=== PATIENT | female | born 1955 | race African-American/Black ===

== ENCOUNTER 2025-04-30 12:46 | Inpatient (IN) | payer MEDICARE, MEDICAID ==
[~2025-04-30] VITALS: Ht 172.7 cm; Wt 128.6 kg
--- NOTE | 2025-04-30 12:54 | ELECTROCARDIOGRAPH REPORT ---
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
[2025-04-30 13:12] LABS: BASOPHILS % (AUTO) 0.7 % (0-1); EOSINOPHILS # (AUTO) 0.1 X10'3 (0-0.9); HEMATOCRIT 41.3 % (35.0-45.0); HEMOGLOBIN 14.2 g/dl (12.0-16.0); LYMPHOCYTES # (AUTO) 2.2 X10'3 (1.1-4.8); LYMPHOCYTES % (AUTO) 32.7 % (21-51); MEAN CORPUSCULAR HEMOGLOBIN 30.5 PG (27.0-31.0); MEAN CORPUSCULAR HGB CONC 34.4 g/dL (33.0-36.5); MEAN CORPUSCULAR VOLUME 88.6 FL (78-98); MEAN PLATELET VOLUME 8.2 FL (7.4-10.4); MONOCYTES # (AUTO) 0.5 X10'3 (0-0.9); NEUTROPHILS # (AUTO) 3.9 X10'3 (1.8-7.7); NEUTROPHILS % (AUTO) 57.6 % (42-75); PLATELET COUNT 281 X10'3 (140-440); RED BLOOD COUNT 4.66 X10'6 (4.20-5.60); RED CELL DISTRIBUTION WIDTH 14.7 % (11.5-14.5); WHITE BLOOD COUNT 6.9 X10'3 (4.5-11.0)
--- NOTE | 2025-04-30 13:21 | RADIOLOGY REPORT ---
EXAM: DI CHEST,SINGLE VIEW HISTORY: CP TECHNIQUE: 1 view of the chest COMPARISON: None FINDINGS: LUNGS: No pleural effusion, consolidation, or pneumothorax MEDIASTINUM: Unremarkable BONES: No acute osseous abnormality OTHER: None IMPRESSION: 1. No acute cardiopulmonary disease.
[2025-04-30 13:31] LABS: ALBUMIN 3.9 G/DL (3.4-5.0); ANION GAP 6 (8-16); BLOOD UREA NITROGEN 16 MG/DL (7-18); BUN/CREATININE RATIO 12.8 (10.0-20.0); CALCIUM 9.3 MG/DL (8.5-10.1); CHLORIDE 102 MMOL/L (99-107); CREATININE 1.25 MG/DL (0.40-0.90); GLUCOSE 114 MG/DL (70-104); POTASSIUM 3.4 MMOL/L (3.5-5.1); PRO BRAIN NATRIURETIC PEPTIDE 102 PG/ML (0-125); SODIUM 141 MMOL/L (135-145); TOTAL CARBON DIOXIDE 33.1 MMOL/L (24-32); eCRCL 42 ML/MIN; eGFR 42 ML/MIN
--- NOTE | 2025-04-30 14:11 | Physician Documentation ---
History of Present Illness ~ Chief Complaint: Chest Pain Stated Complaint: CP Time Seen by MD: 15:42 HPI 39-year-old female presents to the ED with a complaint of intermittent chest pain that has only alleviated when she lays down or decreases her activity level. She does not recall if her pain is worsened with any ambulation. However she states she is generally sedentary. 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 She currently states that her chest pain is intermittent and is accompanying with the occasional nausea shortness of breath and chest heaviness. This patient also complains of increased lower extremity swelling. sHe takes Lasix furosemide, Eliquis hydrochlorothiazide. Day of Onset: Apr 30, 2025 Medication Reconciliation Allergies: Coded Allergies: No Known Allergies (Unverified , 04/30/25) Scheduled Apixaban (Eliquis), 1 TAB PO Q12H, (Reported) Furosemide (Lasix), 1 TAB PO DAILY, (Reported) Hydrochlorothiazide (Hydrochlorothiazide), 1 TAB PO DAILY, (Reported) Lisinopril (Lisinopril), 1 TAB PO DAILY, (Reported) Potassium Chloride (Klor-Con), 1 PKT PO DAILY, (Reported) Review of Systems All Other Systems at this time: Reviewed and Negative ROS As stated above in the HPI, otherwise all systems are reviewed and negative. Physical Exam Vital Signs: Temperature: 97.6, Source: Temporal, Heart Rate: 92, Respiratory Rate: 18, BP: 177/78, Pulse Oximetry: 97, Weight: 128.640 Oxygen Flow Rate: 0 Physical Exam General: Alert, no apparent distress. Respiratory: Lungs clear, no respiratory distress. Chest: No accessory muscle use. Cardiovascular: Regular rate and rhythm, no murmurs. Gastrointestinal: Soft, nontender, nondistended. Bowels sounds present. Extremities: Normal range of motion, no deformity. Neurologic: Oriented x4. Psychiatric: Normal mood and affect. Skin: Normal color, warm and dry. No edema, no ecchymosis. Progress Results/Orders Results/Orders Orders - SERGIO CEE NP Page Hospitalist (04/30/25 16:01) Vital Signs 04/30/25 04/30/25 12:56 15:31 Temp 97.6 Pulse 92 79 Resp 18 16 B/P (MAP) 177/78 166/75 (105) Pulse Ox 97 98 O2 Flow Rate 0 0 Laboratory Tests Test 04/30/25 12:59 04/30/25 15:00 White Blood Count 6.9 Red Blood Count 4.66 Hemoglobin 14.2 Hematocrit 41.3 Mean Corpuscular Volume 88.6 Mean Corpuscular Hemoglobin 30.5 Mean Corpuscular Hemoglobin Concent 34.4 Red Cell Distribution Width 14.7 H Platelet Count 281 Mean Platelet Volume 8.2 Neutrophils (%) (Auto) 57.6 Lymphocytes (%) (Auto) 32.7 Monocytes (%) (Auto) 7.0 Eosinophils (%) (Auto) 2.0 Basophils (%) (Auto) 0.7 Neutrophils # (Auto) 3.9 Lymphocytes # (Auto) 2.2 Monocytes # (Auto) 0.5 Eosinophils # (Auto) 0.1 Basophils # (Auto) 0.0 CBC Comment Sodium Level 141 Potassium Level 3.4 L Chloride Level 102 Carbon Dioxide Level 33.1 H Anion Gap 6 L Blood Urea Nitrogen 16 Creatinine 1.25 H Estimated GFR/1.73 m2 42 BUN/Creatinine Ratio 12.8 Glucose Level 114 H Calcium Level 9.3 Troponin I High Sensitivity 11 12 Pro-B-Type Natriuretic Peptide 102 Albumin 3.9 Chemistry Comments Troponin I High Sens Percent Delta 9 Troponin I Hi Sens Absolute Change 1 Medical Decision Making Findings This 69-year-old very pleasant female presents with concerns over stable angina. In addition to her lower extremity swelling recommending hospitalization in communications media professor's evaluation. sHe would certainly benefit from some diuresis. Troponins were negative and her proBNP is reassuring. Since EKG was reassuring for no signs of STEMI and at a regular rate. No axis deviation Differential Dx:Considerations: Include: angina, aortic dissection, chest wall pain, cholelithiasis, CHF, costochondritis, esophageal reflux/spasm, gastritis, herpes zoster, myocardial infarction, pericarditis, pleuritis, pancreatitis, pneumonia, pneumothorax, pulmonary embolus, other Departure Disposition: 09 ADMITTED INPATIENT Impression: Primary Impression: Chest pain on exertion Additional Impressions: Chest pain at rest Chest pain Edema Referrals: NO PRIMARY CARE PROVIDER (PCP) Additional Comment Medical Screen Exam History: This is a 69-year-old female with history of pulmonary embolism who presents with 4-5 days of sternal chest pain described as "pressure and pins and needles" that radiates to her back, patient reports pain improves with getting up and walking around and increases if she sits for too long. Patient reports no shortness of breath. Patient reports she is on Eliquis due to past history of PE Exam: VITALS: Reviewed and as above. GENERAL: Alert, nontoxic appearing, no apparent distress. RESPIRATORY: No increased work of breathing, no respiratory distress, speaking in full clear sentences MSE performed in triage and patient returned to ED lobby by nursing staff The note accurately reflects work and decisions made by me.JAVAN Valentine 04/30/25 14:11 Signature Scribe Signature: f Attestation: Scribed for Sergio Cee Therapy Site Coordinator by Sergio Black NP . 04/30/25 16:00 DAMIAN WINSLOW Apr 30, 2025 14:11 SERGIO CEE NP Apr 30, 2025 16:00
[2025-04-30] MEDS ORDERED: LISI20TA28 PO (16:14)
[2025-04-30] MEDS ORDERED: HYDR25TA4 PO (16:14)
[2025-04-30] MEDS ORDERED: POTA20PA40 PO (16:14)
[2025-04-30] MEDS ORDERED: APIX5TAB3 PO (16:14)
[2025-04-30] MEDS ORDERED: FURO-149 PO (16:14)
[2025-04-30] MEDS ORDERED: magnesium sulf-water 4G/100mL 100 ML IV PRN (16:20)
[2025-04-30] MEDS ORDERED: HYDROcodone/acetaminophen 10/325mg tab PO PRN (16:20)
[2025-04-30] MEDS ORDERED: metoprolol tartrate 1mg/ml inj IV PRN (16:20)
[2025-04-30] MEDS ORDERED: nitroGLYCERIN 0.4mg SUBLingual tab SL PRN (16:20)
[2025-04-30] MEDS ORDERED: ondansetron/PF 4mg/2ml inj IV PRN (16:20)
[2025-04-30] MEDS ORDERED: magnesium sulf-water 2g/50mL 50 ML IV PRN (16:20)
[2025-04-30] MEDS ORDERED: acetaminophen 325mg tablet PO PRN (16:20)
[2025-04-30] MEDS ORDERED: bisacodyl 10mg suppository rectal RC PRN (16:20)
[2025-04-30] MEDS ORDERED: aminophylline 500mg/20ml vial IV PRN (16:20)
[2025-04-30] MEDS ORDERED: potassium Cl 40MEQ/1/2NS 520ml 520 ML IV PRN (16:20)
[2025-04-30] MEDS ORDERED: mag hydrox/Alum hydrox/simeth 30ml oral suspension PO PRN (16:20)
[2025-04-30] MEDS ORDERED: HYDROcodone/acetaminophen 5mg/325mg tablet PO PRN (16:20)
[2025-04-30] MEDS ORDERED: potassium Cl 20 mEq SR tablet PO PRN (16:20)
[2025-04-30] MEDS: PERFLUTREN PROTEIN-A MICROSPHR (Optison) 0.22 MG/ML 3ML VIAL IV ONE (16:32)
--- NOTE | 2025-04-30 17:01 | HISTORY AND PHYSICAL ---
History & Physical Providers to CC ~ History of Present Illness Reason for Admit\Complaint: Chest pain eval for MD/ right back pain History of Present Illness This is a 69-year-old female who has his recently moved from [place] arrives to the ED with a chief complaint of substernal chest pain sharp radiating towards her back - she is also experiencing associated shortness breath and nausea and a mild headache pain in his intermittent and occurs at restm the patient also complains of right back/flank pain denies any dysuria or change in his bowel habits. The patient is on Eliquis and has a history of PE. Currently the patient has a creatinine of 1.25- I have ordered a V/Q scan- so far the troponins are negative that has no acute ischemic changes on EKG- a echocardiogram and a Lexiscan stress test as ordered for the morning Allergies: Coded Allergies: No Known Allergies (Unverified , 04/30/25) Home Medications Home Medications Active Reported Klor-Con (Potassium Chloride) 20 Meq Packet 1 Pkt PO DAILY 30 Days Eliquis (Apixaban) 5 Mg Tablet 1 Tab PO Q12H 30 Days Lasix (Furosemide) 40 Mg Tablet 1 Tab PO DAILY 30 Days Hydrochlorothiazide 25 Mg Tablet 1 Tab PO DAILY 30 Days Lisinopril 20 Mg Tablet 1 Tab PO DAILY 30 Days Past Medical History Past Medical History Pulmonary embolus, hypertension Past Surgical History Surgical History Comment D&C x2 Ankle fracture repair Family History Family History: FH: breast cancer MOTHER FH: cancer sister FH: diabetes mellitus Brother Past Social History Social History Comment Patient denes history of smoking/ drinking alcohol nor any illicit drug use. DNR Code Status ROS ROS Except for positives in the HPI the rest of the 14 point review systems is negative Exam Vitals: Vital Signs Date Time Temp Pulse Resp B/P (MAP) Pulse Ox O2 Delivery O2 Flow Rate FiO2 04/30/25 15:31 79 16 166/75 (105) 98 0 04/30/25 12:56 97.6 General: Gen. No acute distress alert and oriented 4, morbidly obese Lungs clear to ascultation bilaterally, no wheezes rales or rhonchi appreciated Heart normal sinus rhythm no murmurs rubs or clicks noted Abdomen soft nontender bowel sounds are normoactive Lower extremities no clubbing cyanosis, moderate nonpitting edema appreciated bilaterally Diagnostic Data Last Recorded Lab Results: 04/30/25 1259 04/30/25 1259 Advance Care Planning Advanced Care plannin - 30 Minutes Problems: (1) Chest pain Status: Acute Additional Plan # chest pain evaluate for mi- Serial troponins are negative that has far Echocardiogram Lexiscan stress test # history of PE On Eliquis Currently experiencing chest pain with shortness of breath V/Q scan is ordered # kidney disease evaluate for FRANCISCO Daily CMPs are ordered # hypokalemia On potassium per replacement protocol # hypertension Awaiting med reconciliation # DVT prophylaxis Apixaban I spent a total of 17 minutes on reviewing various resuscitative measures/ ACP with the patient at the time of admission. The patient has decided on DNR Date of Service: Apr 30, 2025 Billing Provider: ROQUE NELSON DO Common Visit Codes: 13316-[id number] INP/OBS CARE (HIGH) Secondary Visit Codes: 51794-[id number] CARE PLAN 30 MINUTES ROQUE ENLSON DO Apr 30, 2025 17:01
[2025-04-30] MEDS: normal saline 1000ml 1,000 ML IV SCH (17:03)
[2025-04-30 17:53] VITALS: BP 157/76; PULSE 89; RESP 15; TEMP 97.8; O2SAT 98
[2025-04-30 18:00] VITALS: BP 152/82; PULSE 78; RESP 12; TEMP 97.7; O2SAT 98
[2025-04-30 20:00] VITALS: RESP 16; O2SAT 98
[2025-04-30] MEDS: docusate sod 100mg capsule PO SCH (20:30)
[2025-04-30] MEDS: potassium Cl 20 mEq SR tablet PO PRN (20:30)
[2025-04-30] MEDS: K and/or MAG REPLACEMENT MC SCH (20:33)
[2025-04-30 22:00] VITALS: BP 150/92; PULSE 82; RESP 16; TEMP 97.3; O2SAT 97
[2025-05-01] VITALS (14 sets, daily range): BP systolic 138–190; BP diastolic 64–79; PULSE 73–124; RESP 16–22; TEMP 97.1–98; O2SAT 97–99
[2025-05-01 06:25] LABS: BASOPHILS % (AUTO) 0.5 % (0-1); EOSINOPHILS # (AUTO) 0.2 X10'3 (0-0.9); EOSINOPHILS % (AUTO) 2.7 % (0-6); HEMOGLOBIN 11.9 g/dl (12.0-16.0); LYMPHOCYTES % (AUTO) 36.1 % (21-51); MEAN CORPUSCULAR HEMOGLOBIN 30.3 PG (27.0-31.0); MEAN CORPUSCULAR VOLUME 89.2 FL (78-98); MEAN PLATELET VOLUME 8.4 FL (7.4-10.4); MONOCYTES # (AUTO) 0.6 X10'3 (0-0.9); MONOCYTES % (AUTO) 9.9 % (2-12); NEUTROPHILS # (AUTO) 2.9 X10'3 (1.8-7.7); NEUTROPHILS % (AUTO) 50.8 % (42-75); PLATELET COUNT 234 X10'3 (140-440); RED BLOOD COUNT 3.92 X10'6 (4.20-5.60); RED CELL DISTRIBUTION WIDTH 14.8 % (11.5-14.5); WHITE BLOOD COUNT 5.7 X10'3 (4.5-11.0)
[2025-05-01 06:40] LABS: ALANINE AMINOTRANSFERASE 14 U/L (12-78); ALBUMIN/GLOBULIN RATIO 0.7 (1.1-1.5); ALKALINE PHOSPHATASE 81 IU/L (46-116); ANION GAP 5 (8-16); ASPARTATE AMINO TRANSFERASE 18 U/L (10-37); BILIRUBIN,TOTAL 0.5 MG/DL (0.1-1.0); BLOOD UREA NITROGEN 16 MG/DL (7-18); CALCIUM 8.5 MG/DL (8.5-10.1); CHLORIDE 104 MMOL/L (99-107); CHOL/HDL RATIO 4.9 (0.00-4.99); CHOLESTEROL 199 MG/DL (0-200); GLUCOSE 94 MG/DL (70-104); HDL CHOLESTEROL 41 MG/DL (35-60); LDL CHOLESTEROL 123 MG/DL (50-100); MAGNESIUM 2.2 MG/DL (1.5-2.4); POTASSIUM 3.4 MMOL/L (3.5-5.1); SODIUM 142 MMOL/L (135-145); TOTAL CARBON DIOXIDE 32.6 MMOL/L (24-32); TOTAL PROTEIN 7.1 G/DL (6.4-8.2); TRIGLYCERIDES 74 MG/DL (20-135); eCRCL 53 ML/MIN; eGFR 55 ML/MIN
[2025-05-01] MEDS: lisinopril 20mg tablet PO SCH (08:00)
[2025-05-01] MEDS: potassium Cl 20 mEq SR tablet PO SCH (08:12)
[2025-05-01] MEDS: apixaban 5mg tablet PO SCH (08:13)
[2025-05-01] MEDS: HYDROchlorothiazide 25mg tablet PO SCH (08:13)
[2025-05-01 09:12] LABS: ABG BASE EXCESS 5.6 mmol/L (-2.0-3.0); ABG HCO3 29.2 mmol/L (21.0-28.0); ABG PCO2 (T) 38.2 mmHg (32.0-45.0); ABG PO2 (T) 92.7 mmHg (83.0-108.0); ALLEN'S TEST POSITIVE; FCOHb 1.3 % (0.5-1.5); FMetHb 0.3 % (0.0-1.5); FO2Hb 96.4 % (94.0-98.0); PATIENT TEMPERATURE 36.7; TOTAL HEMOGLOBIN 13.6 G/dl (12.0-16.0)
[2025-05-01] MEDS: acetaminophen 325mg tablet PO PRN (10:10)
[2025-05-01] MEDS: regadenoson 0.4mg/5ml syringe IV PRN (12:10)
[2025-05-01] MEDS ORDERED: ATOR20TA66 PO (14:59)
[2025-05-01] MEDS ORDERED: METO-395 PO (14:59)
--- NOTE | 2025-05-01 15:23 | RADIOLOGY REPORT ---
Reason for study/Clinical History: Angina eval for KS Comparison Study: None Myocardial Perfusion Study with SPECT Technique: The patient received an intravenous injection of 9 mCi of technetium-99m Sestamibi while at rest. After a short delay, SPECT tomographic images of the heart were obtained. The patient the n went to the stress lab where they received an intravenous Lexiscan utilizing standard protocol. 33 mCi of technetium-99m Sestamibi was injected intravenously immediately after the start of the infu cele. Gated SPECT tomographic images of the heart were acquired and processed. Findings: Rotating planar images show no significant attenuation artifact. The left ventricular size is within normal limits. Stress tomographic images demonstrate normal perfusion. Resting tomographic images demonstrate a similar pattern. Gated portion of the study shows normal wall motion and myocardial thickening. The left ventricular ejection fraction is 72%. (normal greater than 50%) Impression: Normal left ventricular size, wall motion, and function, without evidence of infarction or of myocard ium at ischemic risk. The left ventricular ejection fraction is 72%.
--- NOTE | 2025-05-01 15:41 | DISCHARGE SUMMARY ---
Discharge Summary Providers to CC ~ Discharge Summary Admission Diagnosis: Angina eval for [place] Hospital Course DATE OF ADMISSION: DATE OF DISCHARGE: Discharge Diagnosis\Comment: Chest pain etiology unclear hypertension Operations\Procedures: None Consultants: None Complications: None Condition on DC: Stable Discharge Summary: History of Present Illness This is a 69-year-old female who has his recently moved from [place] arrives to the ED with a chief complaint of substernal chest pain sharp radiating towards her back - she is also experiencing associated shortness breath and nausea and a mild headache pain in his intermittent and occurs at restm the patient also complains of right back/flank pain denies any dysuria or change in his bowel habits. The patient is on Eliquis and has a history of PE. Currently the patient has a creatinine of 1.25- I have ordered a V/Q scan- so far the troponins are negative that has no acute ischemic changes on EKG- a echocardiogram and a Lexiscan stress test as ordered for the morning Hospital course patient is a pleasant 69-year-old female. Was admitted with chest pain was ruled out IA with serial troponins and EKGs. Patient had a Lexiscan done which was negative. Patient was very adamant on being discharged KASSI when she found out that Lexiscan was negative. Patient did recover and recuperate from her illness sooner than expected. She did have high blood pressure out of control and systolics in 150s I did add metoprolol and I gave her a prescription for it as well. *Problems/Diagnosis: (1) Chest pain Status: Acute Total Time Spent on D/C: > 30 Minutes Date of Service: May 01, 2025 Billing Provider: BAKARI KATZ MD Common Visit Codes: 36187-JKD/OBS DISCH DAY >30min BAKARI KATZ MD May 01, 2025 15:41
--- NOTE | 2025-05-01 18:27 | CARDIOLOGY REPORT ---
APPROVED REPORT EXAM: Comprehensive 2D, Doppler, and color-flow Echocardiogram. 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 137.8 cm/s AoV VTI 28.4 cm AO Peak GR. 7.6 mmHg AO Mean GR. 5 mmHg LVOT VTI 24.10 cm LVOT Peak Barry. 106.5 cm/s JENNIFER(VTI)/BSA 2.63 cm2/m2 JENNIFER (VTI) 2.63 cm2 Mitral Valve MV E Velocity 120.9 cm/s MV Peak Gr. 4 mmHg MV DECEL TIME 168 ms MV A Velocity 81.7 cm/s MV PHT 84 ms E/A Ratio 1.5 MVA (PHT) 2.62 cm2 MV [id number] cm/s TDI Lateral E' P. V9.74 cm/s E/Lateral E' 12.4 Tricuspid Valve TR P. Velocity 104 cm/s RAP ESTIMATE 10 mmHg TR Peak Gr. 4 mmHg RVSP 14 mmHg LEFT VENTRICLE Normal LV size and wall thickness. Overall systolic function is normal. There is mild hypokinesia of the apex. LVEF is 55-60%. RIGHT VENTRICLE Right ventricle is mildly dilated with adequate function. ATRIA The left atrium size is normal. AORTIC VALVE Aortic valve is probably trileaflet with mild sclerosis. No stenosis. Trace regurgitation. MITRAL VALVE Mild mitral annular calcification without stenosis. Trace regurgitation. TRICUSPID VALVE The tricuspid valve is normal in structure with trace regurgitation. PULMONIC VALVE Pulmonic valve is grossly normal in structure. GREAT VESSELS The aortic root is normal in size. The IVC is normal in size and collapses >50% with inspiration. PERICARDIUM Normal pericardium. No effusion. Other Information Study Quality: Fair due to body habitus Conclusion Normal LV size and wall thickness. Overall systolic function is normal. There is mild hypokinesia of the apex. LVEF is 55-60%. Right ventricle is mildly dilated with adequate function. The left atrium size is normal. Aortic valve is probably trileaflet with mild sclerosis. No stenosis. Trace regurgitation. Mild mitral annular calcification without stenosis. Trace regurgitation. The tricuspid valve is normal in structure with trace regurgitation. Normal pericardium. No effusion.
[2025-05-01] MEDS ORDERED: atorvastatin 20mg tablet PO SCH (21:00)
== END 2025-05-01 16:25 | disposition home or self-care (01) | DRG 313 ==
LOC: ER 12:47 → PCU 3S 16:29 → ORTHO 4S 05-01 12:45
PROVIDERS: ADMIT Family Medicine; ATTEND Family Medicine
PROC: 4A02XM4 Measurement of Cardiac Total Activity, External Approach (ICD-10-PCS; principal; 2025-05-01)
PROC: 3E033HZ Introduction of Radioactive Substance into Peripheral Vein, Percutaneous Approach (ICD-10-PCS; 2025-05-01)
DX: R07.9 Chest pain, unspecified (principal); E87.6 Hypokalemia; I10 Essential (primary) hypertension; N28.9 Disorder of kidney and ureter, unspecified; M62.830 Muscle spasm of back; Z66 Do not resuscitate; Z79.01 Long term (current) use of anticoagulants; Z79.899 Other long term (current) drug therapy; Z87.891 Personal history of nicotine dependence; Z80.3 Family history of malignant neoplasm of breast; Z86.711 Personal history of pulmonary embolism
CPT/HCPCS: 36415; 36600; 71045; 78452; 80048; 80053; 80061; 82803; 83735; 83880; 84484; 85018; 85025; 87081; 93005; 93017; 93306; 96360; 96361; 99285; A9500; G0378; J2785; J7030